=== PATIENT | female | born 1985 | race African-American/Black ===

== ENCOUNTER 2018-08-25 00:56 | Emergency (ER) | payer SELFPAY ==
[~2018-08-25] VITALS: Ht 175.3 cm; Wt 116.6 kg
[2018-08-25 01:13] VITALS: BP 126/80
== END 2018-08-25 04:35 | disposition left against medical advice (07) ==
LOC: EDBD 00:56 → ER 01:02
DX: M79.671 Pain in right foot (principal); Z53.21 Procedure and treatment not carried out due to patient leaving prior to being seen by health care provider